=== PATIENT | male | born 2000 | race Caucasian/White ===

== ENCOUNTER 2021-03-14 20:07 | Emergency (ER) | payer SELFPAY ==
--- NOTE | 2021-03-14 21:15 | EDM.PDOC ---
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, co-worker may have had COVID vax, pt has ridden truck with co-worker, attended meetings around a small table with co- worker pt has slight ST today, otherwise feeling well requesting COVID testing so that he can go to work here with female fisher weir lives with fisher weir and aunt and uncle, many children and other family members are in and out of house multiple strep tests from urgent care today have been neg, multiple flu B tests have been positive started smoking a few cigs a wk ago, no THC - Related Data Allergies Allergy/AdvReac Type Severity Reaction Status Date / Time No Known Allergies Allergy Verified 03/14/21 21:05 Home Meds: Home Meds NK [No Known Home Meds] 03/14/21 [History] ED ROS GENERAL - Review of Systems Review Of Systems: See Below Constitutional: Reports: No Symptoms. Denies: Fever, Chills HEENT: Reports: Throat Pain Respiratory: Reports: No Symptoms Cardiovascular: Reports: No Symptoms Endocrine: Reports: No Symptoms GI/Abdominal: Reports: No Symptoms : Reports: No Symptoms Musculoskeletal: Reports: No Symptoms Skin: Reports: No Symptoms Neurological: Reports: No Symptoms Psychiatric: Reports: No Symptoms Hematologic/Lymphatic: Reports: No Symptoms Immunologic: Reports: No Symptoms ED EXAM, GENERAL - Physical Exam Exam: See Below Exam Limited By: No Limitations General Appearance: Alert, WD/WN, No Apparent Distress Ears: Hearing Grossly Normal Nose: Normal Inspection Throat/Mouth: Normal Inspection, Normal Lips, Normal Teeth, Normal Voice, Other (slight edema of o-p without exudate/erythema, conj not red, no cough) Head: Atraumatic, Normocephalic Neck: Normal Inspection, Supple, Non-Tender, Full Range of Motion. No: Lympha denopathy (R), Lymphadenopathy (L) Respiratory/Chest: No Respiratory Distress, Lungs Clear, Chest Non-Tender Cardiovascular: Regular Rate, Rhythm, No Edema, No Murmur GI/Abdominal: Soft Back Exam: Normal Inspection Extremities: Non-Tender, No Pedal Edema Neurological: Alert, Oriented, CN II-XII Intact, No Motor/Sensory Deficits Psychiatric: Normal Affect, Normal Mood Skin Exam: Warm, Dry, Intact, Normal Color, No Rash Lymphatic: No Adenopathy Course - Vital Signs Last Recorded V/S: Last Vital Signs Temp 37.7 C 03/14/21 20:10 Pulse 103 H 03/14/21 20:10 Resp 18 03/14/21 20:10 BP 143/81 H 03/14/21 20:10 Pulse Ox 94 L 03/14/21 20:10 - Orders/Labs/Meds Orders: Active Orders 24 hr Category Date Time Status Isolation [COMM] Routine Oth 03/14/21 21:03 Ordered Labs: Laboratory Tests 03/14/21 Range/Units 21:10 SARS-CoV-2 RNA ([facility]) Positive H (NEGATIVE) - Re-Assessments/Exams Free Text/Narrative Re-Assessment/Exam: 03/14/21 22:38 flu neg, COVID neg does have low grade fever and low oxygen not appearing ill no cough observed slight edema of o-p only finding on PE sig other has normal o-p long discussion re tx and prevention and quarantining Departure - Departure Time of Disposition: 22:34 Disposition: Home, Self-Care 01 Condition: Good Clinical Impression: COVID-19 virus infection - Discharge Information *PRESCRIPTION DRUG MONITORING PROGRAM REVIEWED*: Not Applicable *COPY OF PRESCRIPTION DRUG MONITORING REPORT IN PATIENT CELESTINO: Not Applicable Instructions: COVID-19, COVID-19: What to Do If You Are Sick- CDC (09/03/2020), Symptoms of COVID-19 - CDC (08/11/2020) Additional Instructions: Obtain a thermometer and pulse oximeter (that fits over finger) at any pharmacy or [employer] or grocery store. Check your temperature (37.7 centigrade today) and pulse oximetry (94% today) daily. When you have no fever for 7 days, you may return to work? If you feel worse or your oxygen level falls to 88% or lower, notify your doctor or return to Emergency Department. Everyone in your household and at the alliance party needs to quarantine for 10 days. Sepsis Event Note (ED) - Focused Exam Vital Signs: Vital Signs Temp Pulse Resp BP Pulse Ox 03/14/21 20:10 37.7 C 103 H 18 143/81 H 94 L - My Orders Last 24 Hours: My Active Orders 03/14/21 21:03 Isolation [COMM] Routine - Assessment/Plan Last 24 Hours: My Active Orders 03/14/21 21:03 Isolation [COMM] Routine
== END 2021-03-14 22:50 | disposition home or self-care (01) ==
LOC: FB.ED 20:07
DX: U07.1 COVID-19 (principal)
CPT/HCPCS: 87804; 87804-59; 99283; U0002

== ENCOUNTER 2021-05-15 20:06 | Emergency (ER) | payer SELFPAY ==
--- NOTE | 2021-05-15 20:40 | EDM.PDOC ---
ED HPI GENERAL MEDICAL PROBLEM - General Chief Complaint: General Stated Complaint: L ARM PAIN Time Seen by Provider: 05/15/21 20:39 Source of Information: Reports: Patient History Limitations: Reports: No Limitations - History of Present Illness INITIAL COMMENTS - FREE TEXT/NARRATIVE: 21-year-old male who presents to the emergency department reporting 4 day history of pain in his left upper arm. He does not remember any injury to the area but he just awoke and had pain about 4 days ago. It is a sharp and sore pain that is worse with movement and somewhat with palpation. There is no redness or swelling noted. He has no chest pain associated with this. There is normal sensation and function in his left hand. He also reports pain in his right lateral jaw with a "knot" there and he has some dental pain associated with this. He is having no trouble swallowing. There has been no nausea or vomiting. There have been no fevers or chills. He reports the pain in his left arm as a 10/10 in the pain in his neck and jaw with the lump as an 8/10. He has taken no Tylenol or ibuprofen for the pain because "I get nervous about it and I don't want to take it". No weakness or dizziness. He has been eating and drinking normally. There are no other associated signs or symptoms. There are no other modifying factors. Onset: Other (Or days ago for the arm pain. 2 days ago for the lump on his right jaw and dental pain.) Duration: Constant Location: Reports: Face, Upper Extremity, Left Quality: Reports: Sharp (And sore.) Severity: Moderate (Severe.) Improves with: Reports: Rest Worsens with: Reports: Other (Palpation), Movement Context: Reports: Other (As above.) Associated Symptoms: Reports: No Other Symptoms (Except as above.) Treatments MEDICAL ENGINEER: Reports: Other (see below) (Nothing.) - Related Data Allergies Allergy/AdvReac Type Severity Reaction Status Date / Time No Known Allergies Allergy Verified 03/14/21 21:05 Home Meds: Home Meds Amoxicillin/Clavulanate K [Augmentin 875-125 MG] 1 tab PO BID 10 Days #20 tablet 05/15/21 [Rx] Past Medical History Respiratory History: Reports: Asthma Psychiatric History: Reports: Anxiety, Depression - Past Surgical History Other Surgical History Comment: No previous surgeries. Social & Family History - Tobacco Use Tobacco Use Status *Q: Unknown Ever Used Tobacco (Nonsmoker) - Alcohol Use Alcohol Use History: No - Recreational Drug Use Recreational Drug Use: No - Living Situation & Occupation Living situation: Reports: ED ROS GENERAL - Review of Systems Review Of Systems: See Below Constitutional: Denies: Fever, Chills HEENT: Reports: Dental Pain, Throat Pain, Other (Swelling over right lateral jaw). Denies: Throat Swelling Respiratory: Denies: Shortness of Breath, Cough Cardiovascular: Denies: Chest Pain, Palpitations GI/Abdominal: Denies: Abdominal Pain, Nausea, Vomiting : Denies: Dysuria, Hematuria Musculoskeletal: Reports: Arm Pain Skin: Denies: Diaphoresis, Rash Neurological: Denies: Dizziness, Headache Psychiatric: Reports: Anxiety Hematologic/Lymphatic: Denies: Easy Bleeding, Easy Bruising ED EXAM, GENERAL - Physical Exam Exam: See Below Exam Limited By: No Limitations General Appearance: Alert, WD/WN, Moderate Distress Eye Exam: Bilateral Eye: EOMI, Normal Inspection, PERRL Ears: Normal External Exam, Hearing Grossly Normal Ear Exam: Bilateral Ear: Auricle Normal Nose: Normal Inspection, Normal Mucosa, No Blood Throat/Mouth: Normal Voice, No Airway Compromise, Other (Gingival erythema and dental caries) Head: Atraumatic, Normocephalic Neck: Supple, Full Range of Motion, Lymphadenopathy (R) (That is tender to palpation.) Respiratory/Chest: No Respiratory Distress, Lungs Clear, Normal Breath Sounds, No Accessory Muscle Use, Chest Non-Tender Cardiovascular: Normal Peripheral Pulses, Regular Rate, Rhythm Peripheral Pulses: 2+: Radial (L), Radial (R) GI/Abdominal: Normal Bowel Sounds, Soft, Non-Tender, No Mass Back Exam: Normal Inspection Extremities: Normal Range of Motion, No Pedal Edema, Normal Capillary Refill, Arm Pain (With tenderness over the biceps muscle area.) Neurological: Alert, Oriented, CN II-XII Intact, Normal Cognition, No Motor/Sensory Deficits Psychiatric: Anxious Skin Exam: Warm, Dry, Intact, Normal Color, No Rash Course - Vital Signs Last Recorded V/S: Last Vital Signs Temp 36.6 C 05/15/21 20:37 Pulse 111 H 05/15/21 20:37 Resp 20 05/15/21 20:37 BP 147/103 H 05/15/21 20:37 Pulse Ox 97 05/15/21 20:37 - Orders/Labs/Meds Orders: Active Orders 24 hr Category Date Time Status Humerus Lt [CR] Stat Exams 05/15/21 20:56 Taken Meds: Medications Discontinued Medications Generic Name Dose Route Start Last Admin Trade Name David PRN Reason Stop Dose Admin Amoxicillin/Clavulanate Potassium 1 tab 05/15/21 21:43 05/15/21 21:45 Amoxicillin/Clavulanate K 875-125 Mg Tab PO 05/15/21 21:44 1 tab ONETIME ONE Administration - Radiology Interpretation Free Text/Narrative:: Left humerus x-ray shows no definite abnormality per my read. - Re-Assessments/Exams Free Text/Narrative Re-Assessment/Exam: 05/15/21 21:30: The x-ray of the left humerus shows no definite abnormality to my read. He appears to have a muscular strain to the steps. He also appears to have a dental infection with lymphadenitis on the right. I will place the patient on Augmentin to treat with his dental infection and he needs to follow- up with the dentist as soon as he can arrange. He can take Tylenol and ibuprofen as needed for pain. He should follow-up with his primary provider if his symptoms aren't improving. Precautions and reasons for return to the emergency department were discussed with the patient while he was in the emergency department and were detailed in the patient's discharge instructions. Departure - Departure Time of Disposition: 21:37 Disposition: Home, Self-Care 01 Condition: Good Clinical Impression: Dental infection, Cervical lymphadenitis Strain of left upper arm Qualifiers: Encounter type: initial encounter Qualified Code(s): S46.912A - Strain of unspecified muscle, fascia and tendon at shoulder and upper arm level, left arm, initial encounter - Discharge Information Prescriptions: Amoxicillin/Clavulanate K [Augmentin 875-125 MG] 1 tab PO BID 10 Days #20 tablet Referrals: PCP,None [Primary Care Provider] - Forms: ED Department Discharge Additional Instructions: The x-ray of your left upper arm showed no definite abnormality. I think that you have a strain/sprain to your lateral her biceps muscle in the left arm. I did not see any bony problem. He did have a dental infection in your right lower jaw area. I am placing you on Augmentin to treat this infection. He should take probiotics or eat yogurt daily while you are on the antibiotics. You will need to see a dentist as soon as you can arrange. Avoid strenuous use with the left arm and you can take ibuprofen and Tylenol as needed for pain. Back to the emergency department for high fever, unrelenting vomiting, trouble breathing or any other concerning signs or symptoms. Sepsis Event Note (ED) - Evaluation Sepsis Screening Result: No Definite Risk - Focused Exam Vital Signs: Vital Signs Temp Pulse Resp BP Pulse Ox 05/15/21 20:37 36.6 C 111 H 20 147/103 H 97 - My Orders Last 24 Hours: My Active Orders 05/15/21 20:56 Humerus Lt [CR] Stat - Assessment/Plan Last 24 Hours: My Active Orders 05/15/21 20:56 Humerus Lt [CR] Stat
[2021-05-15] MEDS ORDERED: Amoxicillin/Clavulanate K 875-125 MG Tab PO ONE (21:43)
== END 2021-05-15 21:56 | disposition home or self-care (01) ==
LOC: FB.ED 20:06
DX: S46.912A Strain of unspecified muscle, fascia and tendon at shoulder and upper arm level, left arm, initial encounter (principal); K04.7 Periapical abscess without sinus; I88.8 Other nonspecific lymphadenitis; X58.XXXA Exposure to other specified factors, initial encounter
CPT/HCPCS: 73060; 99283; A9270

== ENCOUNTER 2023-04-25 18:07 | Emergency (ER) | payer SELFPAY ==
[2023-04-25 19:15] LABS: BLOOD UREA NITROGEN,BUN 9 mg/dL (7-18); CALCIUM 9.8 mg/dL (8.6-10.2); CARBON DIOXIDE,CO2 24 mmol/L (21-32); CHLORIDE,CL 103 mmol/L (100-110); CREATININE 0.9 mg/dL (0.70-1.30); ESTIMATED GFR 124 mL/min (>60); GLUCOSE RANDOM 147 mg/dL (80-116); POTASSIUM,K 3.3 mmol/L (3.5-5.3); SODIUM,NA 142 mmol/L (135-145)
[2023-04-25] MEDS: Aspirin 81 MG Tab.Chew PO ONE ×2 (19:20→19:50)
[2023-04-25 19:22] LABS: ALANINE AMINOTRANSFERASE,ALT 79 U/L (12-36); ALBUMIN 4.1 g/dL (3.5-5.2); ALKALINE PHOSPHATASE 88 IU/L (56-112); ASPARTATE AMNIOTRANSFERASE,AST 40 IU/L (5-25); BILIRUBIN TOTAL 0.7 mg/dL (0.1-1.3); PROTEIN TOTAL,TP 8.1 g/dL (6.0-8.0)
[2023-04-25 19:40] LABS: HEMATOCRIT 41.6 % (38.3-50.1); MEAN CORPUSCULAR HEMOGLOBIN 33.8 pg (27.0-33.3); MEAN CORPUSCULAR HGB CONC 36.1 g/dL (28.7-35.3); MEAN CORPUSCULAR VOLUME 93.7 fL (80.8-98.7); PLATELET COUNT,PLT 334 x10(3)uL (117-477); RED BLOOD CELL COUNT 4.44 x10(6)uL (3.90-5.90); RED CELL DISTRIBUTION WIDTH 12.6 % (12.4-15.0); WHITE BLOOD CELL COUNT,WBC 10.8 x10-3/uL (3.2-10.1)
[2023-04-25 19:41] LABS: BASOPHILS ABSOLUTE AUTO 0.1 x10-3/uL (0.0-0.3); BASOPHILS PERCENT AUTO 1.1 % (0.3-3.8); EOSINOPHILS ABSOLUTE AUTO 0.1 x10-3/uL (0.0-0.6); LYMPHOCYTES ABSOLUTE AUTO 2.2 x10-3/uL (0.5-4.5); LYMPHOCYTES PERCENT AUTO 20.5 % (15.8-45.3); MEAN PLATELET VOLUME 8.6 fL (6.7-11.0); MONOCYTES ABSOLUTE AUTO 0.4 x10-3/uL (0.0-1.2); MONOCYTES PERCENT AUTO 3.9 % (5.5-15.2); NEUTROPHILS ABSOLUTE AUTO 7.9 x10-3/uL (1.7-6.9); NEUTROPHILS PERCENT AUTO 73.5 % (40.3-71.8)
[2023-04-25] MEDS ORDERED: Potassium Chloride 20 MEQ Tab.ER PO ONE (19:47)
== END 2023-04-25 19:55 ==
LOC: FB.ED 18:07
DX: R07.2 Precordial pain (principal); E87.6 Hypokalemia
CPT/HCPCS: 36415; 71045; 80053; 80307; 84484; 85025; 85379; 93005; 93010; 99283; 99285; A9270-GY

== ENCOUNTER 2023-05-26 21:02 | Emergency (ER) | payer SELFPAY ==
[2023-05-26] MEDS ORDERED: Albuterol 6.7 GM Inhaler INH ONE (21:03)
== END 2023-05-26 23:00 | disposition home or self-care (01) ==
LOC: FB.ED 21:02
DX: F41.1 Generalized anxiety disorder (principal); J45.909 Unspecified asthma, uncomplicated; E66.9 Obesity, unspecified; Z68.38 Body mass index [BMI] 38.0-38.9, adult
CPT/HCPCS: 93005; 99285; A9270